=== PATIENT | female | born 1965 | race Caucasian/White ===

== ENCOUNTER 2024-02-21 18:47 | Emergency (ER) | payer BC, SELFPAY ==
[2024-02-21 18:51] VITALS: BP 138/82
--- NOTE | 2024-02-21 21:16 | ED.SKININJ ---
HPI-Injury
General
Chief Complaint: Skin Surface Trauma
Source: patient
Exam Limitations: none
Time Seen by Provider: 02/21/24 20:53
Travel History
Have you had any contact with someone who has COVID-19?: No
Do you have any symptoms of coronavirus? Fever > 100 degrees, chills, cough, shortness of breath, sore throat, loss of taste or smell, muscle aches, or headache?: No
History of Present Illness-Injury
Is this injury a work related problem?: No
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
Initial Injury comments:
This is a 58 year old female that comes in with c/o laceration to the back of the head. States that she was on a step stool and was stepping down. State that the stool slipped and she fell hitting her head on the dogs dish. States that she feels
fine, has no blurred or double vision and that there was no LOC. States that she has a small laceration that wont stop bleeding. Denies any fever, chills, nausea, vomiting, or headache.
Past History
Past History
ED Past Medical History: Other (Psoriasis); Negative Asthma, HTN, Hypercholesterolemia or NIDDM
ED Past Surgical History: Other (Ophthalmologic)
Social History
Tobacco: Non-smoker
Alcohol: Occasional
Personal:
Living: with family
Employment: Employed
Review of Systems
Review of Systems
All Other Systems: ROS reviewed and negative except as documented in HPI and ROS
Constitutional: Reports no symptoms; Denies fever or chills
EENT: Reports no symptoms
Respiratory: Reports no symptoms
ABD/GI: Reports no symptoms
: Reports no symptoms
Musculoskeletal: Reports no symptoms
Skin: Reports other (Laceration to the scalp)
Neurological: Reports no symptoms; Denies dizzy or headache
Psychiatric: Reports no symptoms
Skin Exam
Laceration
Middle Posterior Scalp:
Length in cm: 1
Orientation: horizontal
Type of Laceration: simple
Any active bleeding?: low grade venous oozing
Distal skin color and temperature: normal-warm & good color
Normal distal neurovascular exam: Yes
Range of motion: full
Phy Exam
General Physical Exam
General Presentation: well appearing and no apparent distress
General age: appears stated age
General Skin: warm and dry
General Habitus: normal
General Mental: alert
General Hydration: appears well hydrated
Eye Exam
Eye Exam: EOMI
Musculoskeletal Exam
Musculoskeletal Exam: full ROM and other (Negative for any spinal or cervical tenderness with palpation. Negative shoulder discomfort with palpation. Patient can cross over, abduct, flex, move wrist and fingers without any discomfort. )
Skin Exam
Skin Exam: normal color, warm/dry, no rash, no petechia and laceration (Very small superficial laceration to the posterior scalp)
Psychiatric Exam
Psychiatric Exam: normal mood/affect
Course
Vital Signs
Initial and Last Documented VS:
Initial Vital Signs
Temp Pulse Resp BP Pulse Ox
98.6 F 76 19 138/82 96
02/21/24 18:51 02/21/24 18:51 02/21/24 18:51 02/21/24 18:51 02/21/24 18:51
Last Documented Vital Signs
Temp Pulse Resp BP Pulse Ox
98.6 F 76 19 138/82 96
02/21/24 18:51 02/21/24 18:51 02/21/24 18:51 02/21/24 18:51 02/21/24 18:51
Procedures
Laceration Closure
Middle Posterior Scalp:
Status of Wound: clean
Size of Wound in cm: 1
Description of Wound Edges: sharp
Preparation: cleaned with saline (and Peroxide)
Revision/Debridement: routine- no revision
Wound exploration: explored to base- no FB
Type of Closure: Dermabond-skin glue
MDM/Problems Addressed
Differential Diagnosis Includes:
laceration superficial
MDM/Problems Addressed:
This is a 58 year old female that comes in with c/o laceration to the posterior scalp after a step stool that she was standing on and she stepped down slipped and she fell. States that there was no LOC and she hit the dog dish.
Explained to patient that this is very superficial. 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 Area cleansed and glued. Will discharge home.
Chronic conditions affecting care:
NA
Acute Exacerbation and/or Progression of Chronic Illness:
NA
*Pulse Oximetry
Patient hypoxic: no
*EKG
Interpreted by ED Provider?: NA
*Hand Cooper Helper Interpretation
Rate: Hand Cooper Helper- N/A
*Critical Care Note
Total Time (30-74mins, 75-104mins- exclusive of procedures): Not Applicable
ED Attending Note
-
Portions of this chart may have been created with voice recognition software.� Occasional wrong word or��sound alike� substitutions may have occurred due to the inherent limitations of voice recognition software.
Discharge Plan
Departure
Patient Disposition: Home (Routine Discharge)
Date of Disposition: 02/21/24
Time of Disposition: 21:26
Patient with high blood pressure during this ER visit?: Yes
Condition: Good
Covid-19: Not Applicable
Discharge Problem:
Superficial laceration of scalp
Instructions: Laceration Repair With Glue (DC), BLOOD PRESSURE
Prescriptions:
No Action
tamsulosin [Flomax] 0.4 mg capsule
0.4 mg PO DAILY Qty: 7 0RF
ibuprofen 600 mg tablet
600 mg PO Q6H PRN (Reason: pain) Qty: 20 0RF
Referrals:
Jimmy Jiménez MD [Family Provider] - As needed
Activity Restrictions/Additional Instructions:
As discussed, this is very superficial. This may heal closed before your hair appointment if you keep it dry. Follow up with the family doctor as needed. IF YOU HAVE VOMITING MORE THE TWICE, HEADACHE NOT RELIEVED BY TYLENOL OR YOU HAVE ANY OTHER
CONCERNS PLEASE RETURN TO THE EMERGENCY ROOM.
Interventions
Interventions:
*Risk Screen - Suicide Last Done: 02/21/24 21:07
*General Assessment Last Done: 02/21/24 21:09
*Neglect/Abuse Screening Last Done: 02/21/24 21:06
*ED COVID-19 Vaccine History Last Done: 02/21/24 18:53
ED-Skin Assessment Last Done: 02/21/24 21:07
Discharge Date and Time
Print Language: [id number]
== END 2024-02-21 21:36 | disposition home or self-care (01) ==
LOC: EMR 18:47
PROVIDERS: EMERGENCY PHYSICIAN Emergency Medicine; FAMILY PHYSICIAN Family Medicine
DX: S01.01XA Laceration without foreign body of scalp, initial encounter (principal); W08.XXXA Fall from other furniture, initial encounter; L40.9 Psoriasis, unspecified; Z91.018 Allergy to other foods
CPT/HCPCS: 99282; 12001

== ENCOUNTER → 2024-04-26 06:24 | Day surgery (SDC) | payer BC, SELFPAY ==
[2024-04-26 09:00] VITALS: BP 104/74
[2024-04-26 09:15] VITALS: BMI 25.4
[2024-04-26] MEDS: ALCAINE 0.5% EYE DROPS 2 DROP OPHTH (09:55)
[2024-04-26] MEDS: PRED FORTE 1% EYE DROPS 1 DROP OPHTH (09:56)
[2024-04-26] MEDS: CYCLOGYL 1% EYE DROPS 1 DROP OPHTH (09:56)
[2024-04-26] MEDS: NEO-SYNEPHRINE 2.5% OPH SOL. 1 DROP OPHTH (09:57)
[2024-04-26] MEDS: POLYTRIM OPHTHALMIC SOLUTION 1 DROP OPHTH (09:57)
[2024-04-26] MEDS: ACUVAIL 1 DROPS OPHTH (09:57)
[2024-04-26] MEDS: MYDRIACYL 1 DROP OPHTH (09:57)
[2024-04-26] MEDS: NORMOSOL-R 1000 IV (09:58)
[2024-04-26] MEDS: AKTEN OPHTHALMIC GEL 1 ML OPHTH (09:59)
== END ==
LOC: SDS 06:24
PROVIDERS: ATTENDING PHYSICIAN Ophthalmology
DX: H25.812 Combined forms of age-related cataract, left eye (principal)
CPT/HCPCS: 66984

== ENCOUNTER → 2024-06-22 06:48 | Outpatient (REF) | payer BC, SELFPAY ==
[2024-06-22 08:17] LABS: % Basophils 1.2 % (0-2); % Eosinophils 3.2 % (0-6); % Immature Granulocytes 0.3 % (0-0.5); % Lymphocytes 29.9 % (20.5-51.1); % Monocytes 8.2 % (1.7-9.3); % Neutrophils 57.2 % (42.2-75.2); Absolute Basophils 0.1 10^3/uL (0-0.2); Absolute Eosinophils 0.3 10^3/uL (0-0.7); Absolute Lymphocytes 2.3 10^3/uL (1.2-3.4); Absolute Monocytes 0.6 10^3/uL (0.1-0.6); Absolute Neutrophils 4.5 10^3/uL (1.4-6.5); Hematocrit 42.2 % (37.0-47.0); Hemoglobin 14.2 g/dL (12.0-16.0); Mean Corp Hgb Conc. 33.6 g/dL (33.0-37.0); Mean Corpuscular Hgb 29.5 pg (27.0-31.0); Mean Corpuscular Volume 87.7 fL (81.0-99.0); Nucleated Red Blood Cells % 0 %; Platelet Count 306 10^3/uL (130-400); Red Blood Cell Count 4.81 10^6/uL (4.20-5.40); Red Cell Dist. Width 13.6 % (11.5-14.5); White Blood Cell Count 7.8 10^3/uL (4.8-10.8)
[2024-06-22 09:05] LABS: ALT (SGPT) 41 U/L (0-35); AST (SGOT) 41 U/L (14-36); Albumin 3.9 g/dl (3.5-5.0); Blood Urea Nitrogen 18 mg/dl (7-17); Calcium 9.5 mg/dl (8.4-10.2); Carbon Dioxide 25 mmol/L (22-30); Glucose 96 mg/dl (70-99); Potassium 4.4 mmol/L (3.5-5.1); Total Bilirubin 0.7 mg/dl (0.2-1.3); Total Cholesterol 202 mg/dl (50-199); Total Protein 6.5 g/dl (6.3-8.2); Triglyceride 100 mg/dl (10-149); Very Low Density Lipoprotein 20 mg/dl (0-30); eGFR > 60.00
[2024-06-22 09:14] LABS: Alkaline Phosphatase 96 U/L (38-126); Chloride 106 mmol/L (98-107); HDL Cholesterol 80 mg/dl; LDL Cholesterol, Calculated 102 mg/dl; Sodium 137 mmol/L (135-145)
[2024-06-22 10:06] LABS: TSH 2.19 uIU/ml (0.47-4.68)
== END ==
LOC: REG 06:48
PROVIDERS: ATTENDING PHYSICIAN Nurse Practitioner Family; FAMILY PHYSICIAN Family Medicine
DX: Z00.00 Encounter for general adult medical examination without abnormal findings (principal)
CPT/HCPCS: 36415; 80053; 80061; 84443; 85025

== ENCOUNTER 2024-11-03 06:31 | Day surgery (SDC) | payer BC, SELFPAY ==
[2024-11-03 08:45] VITALS: BMI 25.6
[2024-11-03 08:46] VITALS: BP 120/82
[2024-11-03] MEDS: NEO-SYNEPHRINE 2.5% OPH SOL. 1 DROP OPHTH (08:46)
[2024-11-03] MEDS: PRED FORTE 1% EYE DROPS 1 DROP OPHTH (08:46)
[2024-11-03] MEDS: ALCAINE 0.5% EYE DROPS 1 DROP OPHTH (08:46)
[2024-11-03] MEDS: CYCLOGYL 1% EYE DROPS 1 DROP OPHTH (08:46)
[2024-11-03] MEDS: MYDRIACYL 1 DROP OPHTH (08:46)
[2024-11-03] MEDS: POLYTRIM OPHTHALMIC SOLUTION 1 DROP OPHTH (08:47)
[2024-11-03] MEDS: ACUVAIL 1 DROPS OPHTH (08:47)
[2024-11-03 11:35] VITALS: BP 121/71
== END 2024-11-03 12:05 | disposition home or self-care (01) ==
LOC: SDS 06:31
PROVIDERS: ATTENDING PHYSICIAN Ophthalmology
DX: H25.811 Combined forms of age-related cataract, right eye (principal)
CPT/HCPCS: 66984

== ENCOUNTER 2025-03-14 06:28 | Day surgery (SDC) | payer BC, SELFPAY | END 2025-03-14 13:30 | disposition home or self-care (01) | LOC: GI 06:28 | PROVIDERS: ATTENDING PHYSICIAN Internal Medicine Gastroenterology | DX: Z12.11 Encounter for screening for malignant neoplasm of colon (principal); K57.30 Diverticulosis of large intestine without perforation or abscess without bleeding; D12.0 Benign neoplasm of cecum | CPT/HCPCS: 45380; 88305 ==

== ENCOUNTER → 2025-08-28 12:00 | Outpatient (REF) | payer BC, SELFPAY | LOC: MRI 3T 12:00 | PROVIDERS: ATTENDING PHYSICIAN Physician Assistant Surgical; FAMILY PHYSICIAN Family Medicine | DX: M25.562 Pain in left knee (principal); M23.92 Unspecified internal derangement of left knee | CPT/HCPCS: 73721 ==